=== PATIENT | female | born 1950 | race Caucasian/White ===

== ENCOUNTER → 2017-01-12 | Outpatient (CLI) | payer OTHER, BC | LOC: BHCLAF 14:30 | PROVIDERS: ATTEND Internal Medicine Cardiovascular Disease | DX: I34.0 Nonrheumatic mitral (valve) insufficiency (principal); I51.81 Takotsubo syndrome; I10 Essential (primary) hypertension | CPT/HCPCS: 93005-PO ==

== ENCOUNTER → 2017-01-24 | Outpatient (CLI) | payer OTHER, BC | LOC: BHLMT 13:15 | PROVIDERS: ATTEND Internal Medicine Cardiovascular Disease | DX: I10 Essential (primary) hypertension (principal) | CPT/HCPCS: 93306-PO ==